=== PATIENT | female | born 1985 | race Caucasian/White ===

== ENCOUNTER 2019-02-01 08:23 | Emergency (ER) | payer BC, SELFPAY ==
[2019-02-01 08:23] VITALS: BP 161/96; PULSE 85; RESP 17; TEMP 36.1; O2SAT 99; BMI 29.0
--- NOTE | 2019-02-01 08:51 | ED.VISSUMM ---
- ER Visit Summary Date of Service: 02/01/19 Chief Complaint: Back pain History of Present Illness: The patient is a 33 F past male history of reflux and spondylolisthesis. No prior back surgery. Complaining of right lower lateral back pain since last evening. She denies any fall or trauma. She has not been lifting or carrying anything. She denies any fever or any dysuria. No numbness or weakness. No bowel or bladder incontinence. No abdominal pain. Worse with movement. Physical Examination: Vital signs are stable afebrile. HEENT exam unremarkable. Neck nontender. Lungs clear to auscultation bilaterally. Heart regular rhythm no murmur. Abdomen is soft and nontender. Patient is moving all 4 extremities. Neurovascular intact. Patient is moving all 4 extremities. She has normal motor strength and sensation in both upper and lower extremities. No cauda equina or saddle anesthesia. Normal medial thigh sensation. Normal 5 out of 5 dorsi and plantar flexion. Normal straight leg raise bilaterally. No radiculopathy. No pain going down either leg. Her back exam the spine is nontender the left SI is nontender the right SI is tender palpation. There is no ecchymosis redness or warmth. Neurologically she is intact with normal motor strength and sensation. Test Results: None Emergency Department Course and Treatment: Discussed with patient this appears to be sciatica. There is no signs of acute disc. Patient does not like to take medications. She will be given an IM injection of Toradol troponin at home. Treatment Plan: Ice and ibuprofen. Follow-up if not improving or return if worse. Disposition: Discharge Impression: Acute right-sided sciatica This note was generated with [employer] dictation software. It may contain incorrect words, spelling, and punctuation that were not noted in review of the chart prior to signing ED Disposition - Plan for ED Patient: Referrals: Valeriano Rascon MD [Primary Care Provider] -
--- NOTE | 2019-02-01 08:54 | ED.DEP ---
ED Disposition - Plan for ED Patient: Disposition: Home or Assisted Living Instructions: BACK PAIN w/ SCIATICA Referrals: Valeriano Rascon MD [Primary Care Provider] - 1 Week if not improving Additional Instructions: Ice to the area. Ibuprofen 600 mg 3 times a day with food on your stomach. Follow-up with not improving or return if you develop weakness, numbness or incontinence.
[2019-02-01] MEDS: Ketorolac 60 MG/2 ML Vial IM (09:08)
== END 2019-02-01 09:37 | disposition home or self-care (01) ==
LOC: ED 09:12
PROVIDERS: Emergency Provider Emergency Medicine; Family Provider Family Medicine; PCP Family Medicine
DX: M54.31 Sciatica, right side (principal); K21.9 Gastro-esophageal reflux disease without esophagitis; Z72.0 Tobacco use
CPT/HCPCS: 96372; 99282